=== PATIENT | male | born 1950 | race Caucasian/White ===

== ENCOUNTER 2018-04-10 16:20 | Inpatient (IN) ==
[2018-04-10] MEDS ORDERED: ONDANSETRON 4 MG/2 ML VIAL IV STA (17:22)
[2018-04-10] MEDS ORDERED: ASPIRIN 325 MG TABLET PO STA (17:22)
[2018-04-10 18:22] LABS: Basophils % 0.5 % (0.0-0.8); Eosinophils # 0.2 10*3/uL (0.0-0.87); Eosinophils % 2.6 % (0.00-10.9); Hematocrit 20.7 VOL% (42.0-52.0); Immature Granulocytes % 0.6 %; Immature Granulocytes Absolute 0.04 #; Lymphocytes # 2.3 10*3/uL (1.4-4.0); Lymphocytes % 35.2 % (21.2-54.2); Mean Corpuscular HGB Conc 30.9 GM/DL (32-36); Mean Corpuscular Hemoglobin 28 PG (27-34); Mean Corpuscular Volume 91.2 FL (87-102); Mean Platelet Volume 10.6 FL (9.6-12.0); Monocytes # 0.6 10*3/uL (0.11-0.8); Monocytes % 8.7 % (1.7-12.7); Neutrophils # 3.5 10*3/uL (1.4-7.4); Neutrophils % 52.4 % (38.7-73.9); Platelet Count 212 T/CUMM (130-400); Red Blood Count 2.27 MC/CUMM (3.8-5.5); Red Cell Distribution Width 13.8 % (9.3-17.3); White Blood Count 6.6 T/CUMM (4-12)
[2018-04-10 18:28] LABS: Hemoglobin 6.4 GM/DL (14.0-18.0)
[2018-04-10 18:30] LABS: PT Patient Result 10.6 SECS; Partial Thromboplastin Time 21.8 SECS (0-40)
[2018-04-10] MEDS ORDERED: PANTOPRAZOLE 40 MG VIAL IV STA (18:31)
[2018-04-10 18:44] LABS: Alanine Aminotransferase 20 U/L (16-61); Albumin 3.8 G/DL (3.4-5.0); Alkaline Phosphatase 45 U/L (45-117); Aspartate Amino Transferase 23 U/L (0-37); Bilirubin,Total < 0.39 MG/DL (0.2-1.0); Blood Urea Nitrogen 36 MG/DL (7-18); Calcium 9.3 MG/DL (8.5-10.1); Glucose 113 MG/DL (74-106); Osmolality,Calculated 287.4 MOS/KG (273-304); Sodium 140 MMOL/L (136-145); Total Protein 7.1 G/DL (6.4-8.3)
[2018-04-10 19:49] LABS: Apearance,Urine CLEAR (Clear); Bilirubin,Urine Negative (Negative); Blood, Urine Negative (Negative); Glucose,Urine (UA) Negative (Negative); Ketones,Urine Negative (Negative); Mucus,Urine Occasional /LPF (Occasional); Nitrite,Urine Negative (Negative); Protein,Urine Negative; RBC,Urine 3 /HPF (0-4); Urine Color Yellow (Yellow); Urine Specific Gravity 1.013 (1.001-1.035); Urine Urobilinogen < 2.0 EU/DL (0.2-1.0); WBC,Urine 1 /HPF (0-6)
[2018-04-10] MEDS ORDERED: SODIUM CHLORIDE 0.9% 1,000 ML IV PRN (20:06)
[2018-04-10] MEDS ORDERED: NITROGLYCERIN SL 0.4 MG TABLET SL PRN (20:08)
[2018-04-10] MEDS ORDERED: ONDANSETRON 4 MG/2 ML VIAL IV PRN (20:13)
[2018-04-10] MEDS ORDERED: ACETAMINOPHEN 325 MG TABLET PO PRN (20:13)
[2018-04-10] MEDS ORDERED: MORPHINE 4 MG/1 ML VIAL IV PRN (20:13)
[2018-04-10 20:49] LABS: Hepatitis A Ab IgM Quant 0.21 Index; Hepatitis A Ab IgM Result Negative (Negative); Hepatitis B Core IgM Quant 0.08 Index; Hepatitis B Core IgM Result Negative (Negative); Hepatitis B Surface Ag Quant < 0.10 Index; Hepatitis B Surface Ag Result Negative (Negative); Hepatitis C Virus Ab Quant 0.03 Index; Hepatitis C Virus Ab Result Negative (Negative)
[2018-04-10 20:53] LABS: Barbiturates Screen,Urine Negative (Negative); Benzodiazepines Screen,Urine Negative (Negative); Cannabinoid Screen,Urine Negative (Negative); Opiate Screen,Urine Negative (Negative); Phencyclidine Screen,Urine Negative (Negative)
[2018-04-10 21:05] LABS: Hematocrit 21.2 VOL% (42.0-52.0); Hemoglobin 6.6 GM/DL (14.0-18.0)
[2018-04-10] MEDS ORDERED: DEXTROSE 50% 25 GM/50 ML SYRINGE IV PRN (21:32)
[2018-04-10] MEDS ORDERED: GLUCAGON 1 MG VIAL IM PRN (21:32)
[2018-04-10] MEDS: SODIUM CHLORIDE 0.9% 1,000 ML IV SCH (22:01)
[2018-04-10] MEDS: PANTOPRAZOLE INJ 200 MG in SODIUM CHLORIDE 0.9% 250 ML IV SCH (22:01)
[2018-04-10] MEDS: CARVEDILOL 25 MG TABLET PO SCH (22:03)
[2018-04-10] MEDS: clonazePAM 0.5 MG TABLET PO SCH (22:03)
[2018-04-10] MEDS: MELATONIN 3 MG TABLET PO SCH (22:04)
[2018-04-10] MEDS: SIMVASTATIN 40 MG TABLET PO SCH (22:04)
[2018-04-11] MEDS: INSULIN REGULAR 100 UNIT/ML SUBCUT SCH ×4 (02:32→18:21)
[2018-04-11 08:01] LABS: Risk Ratio 4.38; VLDL CHOLESTEROL 35.2 MG/DL
[2018-04-11 11:32] LABS: Basophils % 0.7 % (0.0-0.8); Eosinophils # 0.1 10*3/uL (0.0-0.87); Eosinophils % 2.1 % (0.00-10.9); Hematocrit 28.8 VOL% (42.0-52.0); Immature Granulocytes % 0.7 %; Immature Granulocytes Absolute 0.04 #; Lymphocytes # 1.7 10*3/uL (1.4-4.0); Lymphocytes % 28.7 % (21.2-54.2); Mean Corpuscular HGB Conc 32.3 GM/DL (32-36); Mean Corpuscular Hemoglobin 29 PG (27-34); Mean Platelet Volume 10.9 FL (9.6-12.0); Monocytes # 0.5 10*3/uL (0.11-0.8); Monocytes % 7.8 % (1.7-12.7); Neutrophils # 3.6 10*3/uL (1.4-7.4); Platelet Count 215 T/CUMM (130-400); Red Cell Distribution Width 13.7 % (9.3-17.3); White Blood Count 6.1 T/CUMM (4-12)
[2018-04-11 11:40] LABS: Hemoglobin 9.3 GM/DL (14.0-18.0)
[2018-04-11 11:51] LABS: Osmolality,Calculated 284.7 MOS/KG (273-304)
[2018-04-11] MEDS ORDERED: LORazepam 2 MG/1 ML VIAL IV ONE (13:21)
[2018-04-11] MEDS: SODIUM CHLORIDE 0.9% 1,000 ML IV SCH ×2 (16:24→18:08)
[2018-04-11] MEDS: CARVEDILOL 25 MG TABLET PO SCH ×2 (16:25→18:07)
[2018-04-11] MEDS: clonazePAM 0.5 MG TABLET PO SCH ×3 (16:25→21:40)
[2018-04-11 16:40] LABS: Hemoglobin 9.6 GM/DL (14.0-18.0)
[2018-04-11] MEDS: GEMFIBROZIL 600 MG TABLET PO SCH ×2 (17:19→18:07)
[2018-04-11] MEDS: MAGNESIUM CHLORIDE 64 MG TABLET PO SCH (18:07)
[2018-04-11] MEDS: SERTRALINE 50 MG TABLET PO SCH (18:08)
[2018-04-11] MEDS: MELATONIN 3 MG TABLET PO SCH (21:40)
[2018-04-11] MEDS: SIMVASTATIN 40 MG TABLET PO SCH (21:41)
[2018-04-11] MEDS: PANTOPRAZOLE INJ 200 MG in SODIUM CHLORIDE 0.9% 250 ML IV SCH (22:44)
[2018-04-12] MEDS: INSULIN REGULAR 100 UNIT/ML SUBCUT SCH ×6 (02:17→23:54)
[2018-04-12 04:23] LABS: Basophils % 0.7 % (0.0-0.8); Eosinophils # 0.2 10*3/uL (0.0-0.87); Hematocrit 26.6 VOL% (42.0-52.0); Hemoglobin 8.4 GM/DL (14.0-18.0); Immature Granulocytes % 0.3 %; Immature Granulocytes Absolute 0.02 #; Lymphocytes # 2.3 10*3/uL (1.4-4.0); Lymphocytes % 39.1 % (21.2-54.2); Mean Corpuscular HGB Conc 31.6 GM/DL (32-36); Mean Corpuscular Hemoglobin 29 PG (27-34); Mean Corpuscular Volume 90.5 FL (87-102); Mean Platelet Volume 10.5 FL (9.6-12.0); Monocytes # 0.6 10*3/uL (0.11-0.8); Monocytes % 9.7 % (1.7-12.7); Neutrophils # 2.8 10*3/uL (1.4-7.4); Neutrophils % 47.2 % (38.7-73.9); Platelet Count 208 T/CUMM (130-400); Red Blood Count 2.94 MC/CUMM (3.8-5.5); Red Cell Distribution Width 13.8 % (9.3-17.3)
[2018-04-12 04:45] LABS: Calcium 8.5 MG/DL (8.5-10.1); Osmolality,Calculated 286.4 MOS/KG (273-304)
[2018-04-12] MEDS: SODIUM CHLORIDE 0.9% 1,000 ML IV SCH ×3 (07:16→16:18)
[2018-04-12] MEDS ORDERED: DEXTROSE 50% 25 GM/50 ML VIAL IV PRN (11:22)
[2018-04-12] MEDS ORDERED: GLUCAGON 1 MG VIAL IM PRN (11:22)
[2018-04-12] MEDS: CARVEDILOL 25 MG TABLET PO SCH ×2 (11:38→16:13)
[2018-04-12] MEDS: PANTOPRAZOLE INJ 200 MG in SODIUM CHLORIDE 0.9% 250 ML IV SCH (11:38)
[2018-04-12] MEDS: clonazePAM 0.5 MG TABLET PO SCH ×3 (11:38→20:39)
[2018-04-12] MEDS: SERTRALINE 50 MG TABLET PO SCH (11:38)
[2018-04-12] MEDS: MAGNESIUM CHLORIDE 64 MG TABLET PO SCH (11:38)
[2018-04-12] MEDS: GEMFIBROZIL 600 MG TABLET PO SCH ×2 (11:38→16:13)
[2018-04-12] MEDS: MELATONIN 3 MG TABLET PO SCH (20:39)
[2018-04-12] MEDS: SIMVASTATIN 40 MG TABLET PO SCH (20:39)
[2018-04-13 04:09] LABS: Basophils % 0.4 % (0.0-0.8); Eosinophils # 0.3 10*3/uL (0.0-0.87); Eosinophils % 3.5 % (0.00-10.9); Hematocrit 25.9 VOL% (42.0-52.0); Hemoglobin 8.2 GM/DL (14.0-18.0); Immature Granulocytes % 0.6 %; Immature Granulocytes Absolute 0.04 #; Lymphocytes # 1.7 10*3/uL (1.4-4.0); Lymphocytes % 24.6 % (21.2-54.2); Mean Corpuscular HGB Conc 31.7 GM/DL (32-36); Mean Corpuscular Hemoglobin 29 PG (27-34); Mean Corpuscular Volume 89.9 FL (87-102); Mean Platelet Volume 10.9 FL (9.6-12.0); Monocytes # 0.7 10*3/uL (0.11-0.8); Monocytes % 9.7 % (1.7-12.7); Neutrophils # 4.3 10*3/uL (1.4-7.4); Neutrophils % 61.2 % (38.7-73.9); Platelet Count 213 T/CUMM (130-400); Red Blood Count 2.88 MC/CUMM (3.8-5.5); White Blood Count 7.1 T/CUMM (4-12)
[2018-04-13 04:35] LABS: Calcium 8.4 MG/DL (8.5-10.1); Osmolality,Calculated 288.3 MOS/KG (273-304); Potassium 3.8 MMOL/L (3.5-5.1)
[2018-04-13] MEDS: SODIUM CHLORIDE 0.9% 1,000 ML IV SCH (05:51)
[2018-04-13] MEDS: INSULIN REGULAR 100 UNIT/ML SUBCUT SCH ×2 (06:45→12:34)
[2018-04-13] MEDS ORDERED: PROPOFOL 200 MG/20 ML VIAL IV ONE (10:00)
[2018-04-13] MEDS ORDERED: ETOMIDATE 20 MG/10 ML VIAL IV ONE (10:00)
[2018-04-13] MEDS ORDERED: LIDOCAINE 100 MG/5 ML SYRINGE ONE (10:00)
[2018-04-13] MEDS: CARVEDILOL 25 MG TABLET PO SCH (11:00)
[2018-04-13] MEDS: GEMFIBROZIL 600 MG TABLET PO SCH (11:00)
[2018-04-13] MEDS: clonazePAM 0.5 MG TABLET PO SCH ×2 (11:00→15:11)
[2018-04-13] MEDS: SERTRALINE 50 MG TABLET PO SCH (11:01)
[2018-04-13] MEDS: MAGNESIUM CHLORIDE 64 MG TABLET PO SCH (11:01)
[2018-04-13] MEDS: PANTOPRAZOLE INJ 200 MG in SODIUM CHLORIDE 0.9% 250 ML IV SCH (12:34)
[2018-04-13] MEDS ORDERED: PANTOPRAZOLE 40 MG TABLET PO SCH (14:00)
[2018-04-13 16:03] VITALS: BP 139/60
== END 2018-04-13 16:18 | disposition home or self-care (01) | DRG 281 ==
LOC: EDBD → EDUNIT# → N.ED 16:20 → N.EDINP 20:01 → N.TELEN 20:23
PROVIDERS: ADMIT Internal Medicine; ATTEND Internal Medicine